=== PATIENT | female | born 1965 | race Caucasian/White ===

== ENCOUNTER 2017-03-31 23:29 | Emergency (ER) | payer OTHER ==
[~2017-03-31] VITALS: Ht 149.8 cm; Wt 54.4 kg
[2017-04-01] MEDS ORDERED: Motrin,Rufen800 MG PO (00:44)
== END 2017-04-01 00:58 | disposition home or self-care (01) ==
LOC: ED 23:29
DX: T14.8 Other injury of unspecified body region (principal); M25.561 Pain in right knee; M25.512 Pain in left shoulder; M25.532 Pain in left wrist; F17.200 Nicotine dependence, unspecified, uncomplicated; W01.0XXA Fall on same level from slipping, tripping and stumbling without subsequent striking against object, initial encounter; Y93.89 Activity, other specified; Y92.89 Other specified places as the place of occurrence of the external cause; Y99.8 Other external cause status

== ENCOUNTER → 2017-06-10 | Outpatient (CLI) | payer OTHER ==
[~2017-06-10] MED LIST: Motrin,Rufen800 MG PO
== END | disposition home or self-care (01) ==
LOC: US 12:15
DX: I73.9 Peripheral vascular disease, unspecified (principal)

== ENCOUNTER → 2017-06-14 | Outpatient (CLI) | payer OTHER ==
[~2017-06-14] MED LIST changes: +ASPIRIN81 M1 PO; +Fioricet 325 MG1 TAB PO; +HYDR25T PO; +METFORMIN750 MG PO; +METOPROLOL SUCC50 M1 PO; +NITROGLYCERIN0.4 MG SL; +PHENERGAN25 M3 PO; +QVAR8.7 GM INH; +SIMVASTATIN20 MG PO; +TOPAMAX25 M3 PO; +VIT D PO
--- NOTE | ~2017-06-14 | ST ---
[place], [place] EXERCISE STRESS TEST REPORT [id number] UNIT #: [id number] ROOM: DOCTOR: SHANI JOHNSON MD BIRTHDATE: [birth year] DOS: 06/14/2017 Lexiscan portion of the Lexiscan Cardiolite. Baseline cardiogram sinus rhythm with nonspecific ST-T changes with Lexiscan. No new EKG changes, no chest discomfort. Blood pressure and heart rate response was normal. FINAL IMPRESSION: No EKG changes with Lexiscan. No chest pain with Lexiscan. No dysrhythmia with Lexiscan. Blood pressure and heart rate response was normal. Nuclear images will be reported separately. SHANI JOHNSON MD CM:STRESS:EXERCISE STRESS TEST REPORT [id number] SHANI JOHNSON MD
--- NOTE | 2017-06-14 07:19 | NUR ---
INFORMED CONSENT SIGNED FOR LEXISCAN STRESS TEST WITH DR. JOHNSON. RESTING EKG NSR, HR 78, BP 114/74. PULSE OX 95% AND LUNGS CLEAR. COMPLETED ONE MINUTE OF LEXISCAN PROTOCOL RECEIVING LEXISCAN 0.4MG OVER 10 SECONDS. NO ARRHYTHMIAS OR ST CHANGES NOTED. PT C/O NAUSEA. LAST RECOVERY HR 89, BP 124/64. WAITING NUCLEAR SCANNING IN STABLE CONDITION.
== END | disposition home or self-care (01) ==
LOC: CARD 03:40
DX: I65.23 Occlusion and stenosis of bilateral carotid arteries (principal); I21.3 ST elevation (STEMI) myocardial infarction of unspecified site; I25.119 Atherosclerotic heart disease of native coronary artery with unspecified angina pectoris; I10 Essential (primary) hypertension; I77.9 Disorder of arteries and arterioles, unspecified

== ENCOUNTER → 2017-07-06 | Outpatient (CLI) | payer OTHER | END | disposition home or self-care (01) | LOC: MAMMO 08:10 | DX: Z12.31 Encounter for screening mammogram for malignant neoplasm of breast (principal) ==

== ENCOUNTER → 2017-08-25 | Outpatient (CLI) | payer OTHER | END | disposition home or self-care (01) | LOC: RAD 11:46 | DX: M17.0 Bilateral primary osteoarthritis of knee (principal); E11.9 Type 2 diabetes mellitus without complications; I10 Essential (primary) hypertension ==

== ENCOUNTER 2018-01-18 01:20 | Inpatient (IN) | payer OTHER ==
[2018-01-18] VITALS (8 sets, daily range): BP systolic 116–159; BP diastolic 72–94
[~2018-01-18] VITALS: Ht 149.8 cm; Wt 60.0 kg
--- NOTE | ~2018-01-18 | EKG ---
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
--- NOTE | ~2018-01-18 | EKG ---
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
--- NOTE | ~2018-01-18 | CON ---
[place], [place] REPORT OF CONSULTATION NAME: RADHA HERRING UNIT #: [id number] ROOM: 401 DOCTOR: SHANI JOHNSON MD BIRTHDATE: [birth year] DOS: 01/18/2018 HISTORY OF PRESENT ILLNESS: The patient well known to me with a known history of coronary artery disease, previous stent placement in 2009. The patient apparently had a stress test done last year and basically was normal. The patient admitted with diaphoresis and chest discomfort. No acute EKG changes, suggestion of myocardial injury or infarction. Does have a previous history of myocardial infarction as mentioned. EKG showed sinus rhythm with nonspecific ST-T changes. Cardiac enzymes have been negative. The patient continues to smoke. PAST MEDICAL HISTORY: Significant for coronary artery disease, previous stent placement, chronic kidney disease, diabetes, hypertension, hyperlipidemia, tobacco abuse. PAST SURGICAL HISTORY: Cardiac catheterization and stent placement. SOCIAL HISTORY: Continued to smoke. FAMILY HISTORY: Positive for coronary artery disease. ALLERGIES: None. HOME MEDICATIONS: Aspirin, hydrochlorothiazide, metoprolol, nitroglycerin, simvastatin. REVIEW OF SYSTEMS: CONSTITUTIONAL: No fever, no chills. HEENT: No visual disturbances, hearing problems. CARDIOVASCULAR: As per HPI. RESPIRATORY: No shortness of breath. GASTROINTESTINAL: No nausea, no vomiting. GENITOURINARY: No dysuria. NEUROLOGIC: Stable. PHYSICAL EXAMINATION: VITAL SIGNS: Blood pressure is 130/90. HEENT: Unremarkable. NECK: Supple, no JVD. LUNGS: Clear. HEART: Sounds are regular. NEUROLOGICAL: Stable. EKG, sinus with nonspecific ST-T changes. LABORATORY DATA: Electrolytes are normal. GFR is normal. Creatinine is 1.0. INR is normal. Troponins have all been negative. IMPRESSION: The patient with a history of previous myocardial infarction and stent placement with angina. [place], [place] REPORT OF CONSULTATION NAME: [facility] [id number] UNIT #: [id number] ROOM: 401 DOCTOR: SHANI JOHNSON MD BIRTHDATE: [birth year] RECOMMENDATIONS: Add nitrates to the current regimen is like isosorbide, Imdur 30 mg daily. Increase activity, schedule her for an exercise Cardiolite stress test as an outpatient and we will follow up. SHANI JOHNSON MD CM:CONSTR:REPORT OF CONSULTATION 1622 01/19/18 0438 interface
[~2018-01-18 01:20] MED LIST changes: -SIMVASTATIN20 MG PO; +ZOCOR40 MG PO
[2018-01-18 02:22] LABS: BASO % 0.5 % (0.0-1.0); EOS # 0.1 10*3/uL (0.0-0.4); EOS % 1.9 % (1.0-4.0); HEMATOCRIT 40.3 % (37.0-47.0); HEMOGLOBIN 13.4 g/dl (12.0-16.0); LYMPH # 2.2 10*3/uL (1.3-4.4); LYMPH % 29.6 % (27.0-41.0); MEAN CELL VOLUME 85.9 fl (81.0-99.0); MEAN CORPUSCULAR HGB 28.6 pg (27.0-31.0); MEAN CORPUSCULAR HGB CONC 33.3 g/dl (33.0-37.0); MEAN PLATELET VOLUME 11.1 fl (9.6-12.3); MONO # 0.4 10*3/uL (0.1-1.0); MONO % 5.5 % (3.0-9.0); NEUT # 4.7 10*3/uL (2.3-7.9); NEUT % 62.2 % (47.0-73.0); PLATELET COUNT AUTOMATED 208 10*3/uL (130-400); RED BLOOD COUNT 4.69 10*6/uL (4.10-5.10); RED CELL DISTRI WIDTH 13.7 % (0-14.5); WHITE BLOOD COUNT 7.5 10*3/uL (4.8-10.8)
[2018-01-18 02:32] LABS: ACT PARTIAL THROMBO TIME 21.6 SECONDS (20.8-31.5); INTERNATIONAL NORM RATIO 0.9 (2.0-3.5)
[2018-01-18 02:40] LABS: ALBUMIN 4.2 gm/dl (3.1-4.5); ALKALINE PHOSPHATASE 104 U/L (45-117); BUN 13 mg/dl (7-24); CHLORIDE 105 mmol/L (98-107); CREATININE 1.01 mg/dL (0.55-1.02); SGOT/AST 15 IU/L (3-35); SGPT/ALT 36 U/L (12-78); SODIUM 143 mmol/L (136-145); TOTAL PROTEIN 7.6 gm/dL (6.4-8.2)
[2018-01-18 02:42] LABS: TROPONIN I < 0.015 ng/ml (<0.045)
[2018-01-18] MEDS ORDERED: FIORINAL W/CODE1 TAB PO (04:51)
[2018-01-18] MEDS ORDERED: VITAMIN D-32000 UNIT PO (04:51)
[2018-01-18 07:11] LABS: PHOSPHOROUS 3.1 mg/dL (2.5-4.9)
[2018-01-18 07:18] LABS: THYROID STIM HORMONE (HS) 4.24 uIU/ml (0.358-4.75)
[2018-01-18 08:42] LABS: VITAMIN D, 25-HYDROXY 27.1 ng/mL (30-100)
[2018-01-19] VITALS: BP 107/66
[2018-01-19 06:47] LABS: BUN 15 mg/dl (7-24); CHLORIDE 102 mmol/L (98-107); CREATININE 0.88 mg/dL (0.55-1.02); POTASSIUM 3.4 mmol/L (3.5-5.1); SODIUM 140 mmol/L (136-145)
[2018-01-19 08:00] VITALS: BP 114/66
[2018-01-19] MEDS ORDERED: NATURE'S BLEND F1 MG PO (10:46)
[2018-01-19] MEDS ORDERED: IMDUR SA30 MG PO (13:00)
[2018-01-24] MEDS ORDERED: METFORMIN HYDR750 MG PO (06:27)
[2018-01-24] MEDS ORDERED: REQUIP0.25 M1 PO (06:27)
[2018-01-24] MEDS ORDERED: HYDROXYZINE HYD50 MG PO (06:28)
== END 2018-01-19 12:37 | disposition home or self-care (01) | DRG 392 ==
LOC: ED 01:20 → 4E 03:46 → EDHOLD 03:46 → 4E 04:00
PROVIDERS: Emergency Medicine Emergency Medical Services; Internal Medicine; Student in an Organized Health Care Education/Training Program
DX: K21.9 Gastro-esophageal reflux disease without esophagitis (principal); E11.22 Type 2 diabetes mellitus with diabetic chronic kidney disease; R07.89 Other chest pain; I25.10 Atherosclerotic heart disease of native coronary artery without angina pectoris; E83.41 Hypermagnesemia; E87.6 Hypokalemia; H00.016 Hordeolum externum left eye, unspecified eyelid; G43.909 Migraine, unspecified, not intractable, without status migrainosus; I12.9 Hypertensive chronic kidney disease with stage 1 through stage 4 chronic kidney disease, or unspecified chronic kidney disease; F17.210 Nicotine dependence, cigarettes, uncomplicated; N18.9 Chronic kidney disease, unspecified; E53.8 Deficiency of other specified B group vitamins; E78.5 Hyperlipidemia, unspecified; J45.909 Unspecified asthma, uncomplicated; Z95.5 Presence of coronary angioplasty implant and graft; Z71.6 Tobacco abuse counseling; I25.2 Old myocardial infarction; Z82.49 Family history of ischemic heart disease and other diseases of the circulatory system; Z79.82 Long term (current) use of aspirin; Z79.84 Long term (current) use of oral hypoglycemic drugs; Z98.891 History of uterine scar from previous surgery; Z83.3 Family history of diabetes mellitus; Z84.89 Family history of other specified conditions; F41.9 Anxiety disorder, unspecified; R09.1 Pleurisy

== ENCOUNTER → 2018-01-24 | Outpatient (CLI) | payer OTHER ==
[~2018-01-24] MED LIST changes: +FIORINAL W/CODE1 TAB PO; +HYDROXYZINE HYD50 MG PO; +IMDUR SA30 MG PO; +METFORMIN HYDR750 MG PO; +NATURE'S BLEND F1 MG PO; +REQUIP0.25 M1 PO; +VITAMIN D-32000 UNIT PO
--- NOTE | ~2018-01-24 | ST ---
[place], [place] EXERCISE STRESS TEST REPORT NAME: RADHA HERRING UNIT #: [id number] ROOM: DOCTOR: SHANI JOHNSON MD BIRTHDATE: [birth year] DOS: 01/24/2018 LEXISCAN PORTION OF LEXISCAN CARDIOLITE Baseline cardiogram, sinus. With Lexiscan, no new EKG changes. No chest pain. Blood pressure and heart rate responses normal. Nuclear images will be reported separately. SHANI JOHNSON MD CM:STRESS:EXERCISE STRESS TEST REPORT 0 7 SHANI JOHNSON MD
== END | disposition home or self-care (01) ==
LOC: CARD 03:23
DX: R07.9 Chest pain, unspecified (principal)

== ENCOUNTER → 2019-01-10 | Outpatient (CLI) | payer OTHER | END | disposition home or self-care (01) | LOC: US 14:00 | DX: I65.23 Occlusion and stenosis of bilateral carotid arteries (principal); R55 Syncope and collapse ==

== ENCOUNTER 2024-02-11 19:31 | Emergency (ER) | payer SELFPAY ==
[~2024-02-11] VITALS: Ht 149.8 cm; Wt 49.0 kg
[2024-02-11] MEDS ORDERED: Metoclopramide Hydrochloride 10 MG/2 ML AMP IV ONE (20:25)
[2024-02-11] MEDS ORDERED: diphenhydrAMINE hydrochloride 50 MG/ML VIAL IV ONE (20:25)
[2024-02-11] MEDS ORDERED: SODIUM CHLORIDE 0.9% 1,000 ML IV ONE (20:25)
[2024-02-11 20:38] LABS: BASO % 0.1 % (0.0-1.0); EOS # 0.1 10*3/uL (0.0-0.4); EOS % 0.7 % (1.0-4.0); HEMATOCRIT 44.6 % (37.0-47.0); LYMPH # 0.9 10*3/uL (1.3-4.4); LYMPH % 13.3 % (27.0-41.0); MEAN CELL VOLUME 92.1 fl (81.0-99.0); MEAN CORPUSCULAR HGB 30.4 pg (27.0-31.0); MEAN PLATELET VOLUME 11.2 fl (9.6-12.3); MONO # 0.2 10*3/uL (0.1-1.0); MONO % 3.3 % (3.0-9.0); NEUT # 5.7 10*3/uL (2.3-7.9); NEUT % 82.3 % (47.0-73.0); PLATELET COUNT AUTOMATED 186 10*3/uL (130-400); RED BLOOD COUNT 4.84 10*6/uL (4.10-5.10); RED CELL DISTRI WIDTH 12.6 % (0-14.5)
[2024-02-11 21:09] LABS: BILIRUBIN Negative (Negative); BLOOD Negative (Negative); CLARITY Cloudy (Clear); COLOR Yellow (Yellow); GLUCOSE Negative (Negative); KETONE Trace (Negative); LEUKO ESTERASE Negative (Negative); NITRITE Negative (Negative); SPECIFIC GRAVITY >= 1.030 (1.001-1.030)
[2024-02-11 21:10] LABS: BUN 13 mg/dl (9-23); CHLORIDE 109 mmol/L (98-107); POTASSIUM 3.3 mmol/L (3.4-5.1)
[2024-02-11] MEDS ORDERED: Ketorolac Tromethamine 30 MG/ML VIAL IV ONE (21:20)
[2024-02-11] MEDS ORDERED: POTASSIUM CHLORIDE 20 MEQ TAB PO ONE (21:20)
[2024-02-11 21:32] LABS: MUCOUS 2+
[2024-02-11 21:33] LABS: BACTERIA TRACE; EPITHELIAL CELLS TNTC; RBC 0-2 rbc/hpf (0-2)
[2024-02-11] MEDS ORDERED: NAPROSYN500 MG PO (22:05)
[2024-02-11] MEDS ORDERED: Phenergan25 MG PO (22:05)
[2024-02-11] MEDS ORDERED: Dexamethasone Sodium Phospha 20 MG/5 ML VIAL IV ONE (22:10)
== END 2024-02-11 22:32 | disposition home or self-care (01) ==
LOC: ED 19:31
PROVIDERS: Nurse Practitioner Family
DX: G43.909 Migraine, unspecified, not intractable, without status migrainosus (principal); E87.6 Hypokalemia; E83.41 Hypermagnesemia; I25.10 Atherosclerotic heart disease of native coronary artery without angina pectoris; J45.909 Unspecified asthma, uncomplicated; E78.5 Hyperlipidemia, unspecified; E11.22 Type 2 diabetes mellitus with diabetic chronic kidney disease; I12.9 Hypertensive chronic kidney disease with stage 1 through stage 4 chronic kidney disease, or unspecified chronic kidney disease; N18.9 Chronic kidney disease, unspecified; Z87.442 Personal history of urinary calculi; F17.200 Nicotine dependence, unspecified, uncomplicated; Z95.5 Presence of coronary angioplasty implant and graft; Z98.890 Other specified postprocedural states

== ENCOUNTER 2024-04-17 18:08 | Emergency (ER) | payer OTHER ==
[~2024-04-17] VITALS: Ht 149.8 cm; Wt 45.4 kg
[~2024-04-17 18:08] MED LIST changes: +NAPROSYN500 MG PO; +Phenergan25 MG PO
[2024-04-17] MEDS ORDERED: METHOCARBAMOL500 M1 PO (19:33)
[2024-04-17] MEDS ORDERED: NAPROXEN250 MG PO (19:33)
[2024-04-17] MEDS ORDERED: Ketorolac Tromethamine 30 MG/ML VIAL IM ONE (19:35)
[2024-04-17] MEDS ORDERED: METHOCARBAMOL 500 MG TAB PO ONE (19:35)
== END 2024-04-17 19:52 | disposition home or self-care (01) ==
LOC: ED 18:08
DX: S29.012A Strain of muscle and tendon of back wall of thorax, initial encounter (principal); I10 Essential (primary) hypertension; I25.2 Old myocardial infarction; E11.9 Type 2 diabetes mellitus without complications; E78.00 Pure hypercholesterolemia, unspecified; G43.909 Migraine, unspecified, not intractable, without status migrainosus; J45.909 Unspecified asthma, uncomplicated; Z87.442 Personal history of urinary calculi; F17.200 Nicotine dependence, unspecified, uncomplicated; Z95.5 Presence of coronary angioplasty implant and graft; Z98.890 Other specified postprocedural states; X58.XXXA Exposure to other specified factors, initial encounter; Y93.89 Activity, other specified; Y92.009 Unspecified place in unspecified non-institutional (private) residence as the place of occurrence of the external cause; Y99.8 Other external cause status